=== PATIENT | male | born 1985 | race Caucasian/White ===

== ENCOUNTER → 2018-05-03 13:09 | Outpatient (CLI) | payer MEDICAID, SELFPAY ==
--- NOTE | 2018-05-03 13:30 | DI.REPORT_ITS ---
SYMPTOMS/DIAGNOSIS: SEVERE JOINT PAIN, STIFFNESS, PSORIASIS, LIKELY ARTHRITIS, SYNOVITIS DACTYLITIS PELVIS AND BOTH HIPS: The hip joint spaces are well maintained. No bony erosions or soft tissue calcifications are seen. The SI joints are not optimally profiled. IMPRESSION: Negative pelvis and bilateral hips. RIGHT HAND: The bones appear normally mineralized. No erosive or productive changes are seen. There are no soft tissue calcifications. IMPRESSION: Negative right hand. LEFT HAND: The bones are normally mineralized. The joint spaces are well maintained. No erosive or productive changes are seen. No soft tissue calcifications are present. IMPRESSION: Negative left hand. RIGHT FOOT: The bones are normally mineralized. The joint spaces are well maintained. No erosive or productive changes are seen. There is no soft tissue calcifications. IMPRESSION: Negative right foot. LEFT FOOT: The bones are normally mineralized. The joint spaces are well maintained. No erosive or productive changes or soft tissue calcifications are seen. IMPRESSION: Negative left foot.
[2018-05-03 13:43] LABS: HCT 43.4 % (40.0-50.0); HGB 14.5 g/dL (13.5-17.5); Mean Corp. HGB Concentration 33.4 g/dL (32.0-36.0); Mean Corpuscular Hemoglobin 30.7 pg (27.0-33.0); Mean Corpuscular Volume 91.8 fL (80-95); Mean Platelet Volume 10.3 fL (8.0-11.0); Platelet Count 321 x1000/uL (130-400); RBC 4.73 m/cumm (4.50-6.00); RBC Distribution Width 12.9 % (11.8-14.1); White Blood Cell Count 13.64 k/cumm (4.4-10.8)
[2018-05-03 14:09] LABS: ALT 31 U/L (12-78); AST 17 U/L (15-37); Albumin 3.8 g/dL (3.4-5.0); Alkaline Phosphatase 98 U/L (46-116); Anion Gap 6.2 mmol/L (3-11); BUN 14 mg/dL (7-18); Bilirubin, Total 0.5 mg/dL (0.2-1.0); C-Reactive Protein 0.41 mg/dL (0.0-0.3); CO2 27.8 mmol/L (21.0-32.0); CREATININE 0.83 mg/dL (0.70-1.30); Calcium 9.1 mg/dL (8.5-10.1); Chloride 103 mmol/L (98-107); Glucose 94 mg/dL (70-100); Potassium 4.2 mmol/L (3.5-5.1); Sodium 137 mmol/L (136-145); Total Protein 7.3 g/dL (6.4-8.2)
[2018-05-03 15:11] LABS: ESR 7 MM/HR (0-15)
== END ==
PROVIDERS: PCP Family Medicine; Visit Provider Internal Medicine Rheumatology
DX: L40.50 Arthropathic psoriasis, unspecified (principal); Z79.899 Other long term (current) drug therapy; M25.50 Pain in unspecified joint; M25.60 Stiffness of unspecified joint, not elsewhere classified
CPT/HCPCS: 36415; 73521; 80053; 85027; 85652; 73120; 73630; 86140

== ENCOUNTER 2018-07-05 14:47 | Outpatient (CLI) | payer MEDICAID, SELFPAY ==
[2018-07-06 09:39] LABS: Hepatitis B Surface Ag Negative (NEGAT)
[2018-07-06 09:52] LABS: Hep B Core Antibody Negative (NEGAT); Hepatitis C Ab w Rflx HCV PCR Negative (NEGAT)
== END 2018-07-05 15:07 ==
PROVIDERS: PCP Family Medicine; Visit Provider Family Medicine
DX: L40.50 Arthropathic psoriasis, unspecified (principal)
CPT/HCPCS: 36415; 86704; 86803; 87340

== ENCOUNTER 2018-07-08 03:11 | Emergency (ER) | payer MEDICAID, SELFPAY ==
[2018-07-08 03:27] VITALS: BP 126/90; PULSE 96; RESP 18; TEMP 37.6; O2SAT 97
--- NOTE | 2018-07-08 04:09 | ED.GENADUL_ITS ---
Discharge Plan Disposition Patient Disposition: HOME Condition: Good Discharge Details Chief Complaint: DentalOral Clinical Impression: Dental infection Primary Care Provider: Ching Muse ED Provider: Papito Vera [place] Meds and New Rx's Prescriptions: New clindamycin HCl 150 mg capsule 450 mg PO TID Qty: 60 RF: 0 pantoprazole [Protonix] 40 mg tablet,delayed release (DR/EC) 40 mg PO DAILY Qty: 10 RF: 0 ibuprofen 600 mg tablet 600 mg PO QID PRN (Reason: pain) Qty: 20 RF: 0 Continue prednisone 10 mg Tablet 10 mg PO DAILY RF: 0 Discharge Instructions Instructions: Dental Abscess (ED) Additional Instructions: Take antibiotic as directed. May use Tylenol as well as prescription Motrin for pain. Take the Protonix to help protect your stomach since you are also on prednisone. Follow-up with your dentist on Thursday. Return to ED if your worse Medical Decision Making Patient here with dental pain and likely dental infection. Has allergies to penicillin so he will be started on clindamycin. He has not taking anything for pain. He is on prednisone for his psoriatic arthritis. He is on 10 mg a day. I will put him on some Motrin but will also use Protonix to help protect his stomach. He will probably only need a day or 2 of this. Follow-up with dentistry on Thursday as planned. Return to ED if worse. HPI General Mode of arrival: ambulatory . Date/Time Provider Initiated Documentation: 07/08/18 04:00 . Limitations to Documentation: no limitations . Information obtained by: patient . HPI Narrative: Patient presents to ED with increasing left dental pain. Patient started to have pain a day or 2 ago. It has got much worse overnight tonight. He has had no fever. He has no difficulty breathing or swallowing. He states he does have an appointment to see his dentist on Thursday. He presents tonight because of increasing pain and some facial swelling. Related Data Home Medications Medication Instructions Recorded Confirmed clindamycin HCl 450 mg PO TID #60 cap 07/08/18 ibuprofen 600 mg PO QID PRN #20 tab 07/08/18 pantoprazole [Protonix] 40 mg PO DAILY #10 tab 07/08/18 prednisone 10 mg PO DAILY 07/08/18 07/08/18 Previous Rx's Medication Instructions Recorded clindamycin HCl 450 mg PO TID #60 cap 07/08/18 ibuprofen 600 mg PO QID PRN #20 tab 07/08/18 pantoprazole [Protonix] 40 mg PO DAILY #10 tab 07/08/18 Allergies Allergy/AdvReac Type Severity Reaction Status Date / Time amoxicillin Allergy Unknown Unverified 07/08/18 03:32 penicillin G Allergy Unknown Unverified 07/08/18 03:32 General Stated Complaint: DentalOral NICOLA: 4 Review of Systems Constitutional Denies chills, Denies fever(s) and Denies headache(s) ENT Reports dental pain, Denies dysphagia, Denies headache(s), Denies neck pain and Denies odynophagia Cardiovascular Denies dyspnea Respiratory Denies dyspnea Gastrointestinal Denies dysphagia and Denies odynophagia Musculoskeletal Denies neck pain Neurologic Denies headache(s) PFSH Family History Grandfather Colon cancer Medical History Adjustment disorder with depressed mood Attention deficit disorder Cocaine abuse, episodic Family history of colon cancer Family history of prostate cancer Irritable bowel syndrome Lipoma Marijuana use Pain, dental Psoriasis Rectal bleeding Social History Smoking/Tobacco Use Status: Former Tobacco Use Surgical History Colonoscopy - MAC (08/18/17) Exam Const General: cooperative, comfortable and no acute distress Orientation: alert and oriented x3 HENMT Head: normocephalic and atraumatic Face and sinus: no erythema, no fluctuance, no tenderness and other (Some mild swelling to the left anterior mandibular area) Teeth and gingiva: abnormal tooth or associated gingiva Neck Neck: trachea midline and supple Lymphatic: no lymphadenopathy noted Neuro General: alert, oriented x3, no focal motor deficits and CN's II-XI intact bilaterally Course Vital Signs Temperature 99.7 F H 07/08/18 03:27 Pulse 96 H 07/08/18 03:27 Respiratory Rate 18 07/08/18 03:27 Blood Pressure 126/90 07/08/18 03:27 Pulse Oximetry 97 07/08/18 03:27 Temperature 99.7 F H 07/08/18 03:27 Temperature Source Temporal Artery Scan 07/08/18 03:27 Pulse 96 H 10/25/18 03:27 Respiratory Rate 18 07/08/18 03:27 Respiratory Effort 07/08/18 03:27 Blood Pressure 126/90 07/08/18 03:27 Pulse Oximetry 97 07/08/18 03:27 Oxygen Delivery Method Room Air 07/08/18 03:27 Oxygen Flow Rate 0 07/08/18 03:27 Pain Level 8 07/08/18 03:31
[2018-07-08] MEDS: Clindamycin 150 MG CAP 450 MG PO (04:10)
[2018-07-08] MEDS: Pantoprazole 40 MG TABCR PO (04:10)
[2018-07-08] MEDS: Ibuprofen 600 MG TAB PO (04:10)
== END 2018-07-08 04:18 | disposition home or self-care (01) ==
LOC: ER 04:20
PROVIDERS: Emergency Provider Emergency Medicine; PCP Family Medicine
DX: R68.84 Jaw pain (principal); K04.7 Periapical abscess without sinus
CPT/HCPCS: 99283

== ENCOUNTER 2018-07-23 11:54 | Outpatient (CLI) | payer MEDICAID, SELFPAY ==
[2018-07-26 13:24] LABS: TB Interpretation Negative (NEGAT); TB1 Ag minus Nil 0.02 IU/mL; TB2 Ag minus Nil 0.02 IU/mL
== END 2018-07-23 12:14 ==
PROVIDERS: PCP Family Medicine; Visit Provider Family Medicine
DX: L40.50 Arthropathic psoriasis, unspecified (principal)
CPT/HCPCS: 36415; 86480

== ENCOUNTER 2019-01-27 15:29 | Outpatient (CLI) | payer MEDICAID, SELFPAY ==
[2019-01-27 15:59] LABS: HCT 42.9 % (40.0-50.0); HGB 14.7 g/dL (13.5-17.5); Mean Corp. HGB Concentration 34.3 g/dL (32.0-36.0); Mean Corpuscular Hemoglobin 30.1 pg (27.0-33.0); Mean Corpuscular Volume 87.9 fL (80-95); Mean Platelet Volume 10.6 fL (8.0-11.0); Platelet Count 289 x1000/uL (130-400); RBC 4.88 m/cumm (4.50-6.00); RBC Distribution Width 13.4 % (11.8-14.1); White Blood Cell Count 8.77 k/cumm (4.4-10.8)
[2019-01-27 16:44] LABS: ESR 1 MM/HR (0-15)
[2019-01-27 16:54] LABS: ALT 23 U/L (12-78); AST 15 U/L (15-37); Albumin 4.3 g/dL (3.4-5.0); Alkaline Phosphatase 82 U/L (46-116); Anion Gap 13.9 mmol/L (3-11); BUN 13 mg/dL (7-18); Bilirubin, Total 0.5 mg/dL (0.2-1.0); C-Reactive Protein 0.21 mg/dL (0.0-0.3); CO2 23.1 mmol/L (21.0-32.0); CREATININE 1.03 mg/dL (0.70-1.30); Calcium 8.9 mg/dL (8.5-10.1); Chloride 106 mmol/L (98-107); Glucose 88 mg/dL (70-100); Potassium 4.1 mmol/L (3.5-5.1); Sodium 143 mmol/L (136-145); Total Protein 6.9 g/dL (6.4-8.2)
== END 2019-01-27 15:49 ==
PROVIDERS: PCP Family Medicine; Visit Provider Internal Medicine Rheumatology
DX: L40.50 Arthropathic psoriasis, unspecified (principal); Z79.899 Other long term (current) drug therapy
CPT/HCPCS: 36415; 80053; 85027; 85652; 86140

== ENCOUNTER 2019-04-16 15:51 | Emergency (ER) | payer MEDICAID, SELFPAY ==
[2019-04-16 16:02] VITALS: BP 146/55; PULSE 52; RESP 18; TEMP 36.6
[2019-04-16] MEDS: LORazepam 2 MG/ML VIAL 0.5 MG IVP (16:33)
[2019-04-16] MEDS: Prochlorperazine 10 MG/2 ML VIAL IVP (16:33)
[2019-04-16] MEDS: Ketorolac 30 MG/ML VIAL IVP (16:33)
[2019-04-16] MEDS: diphenhydrAMINE 50 MG/ML VIAL IVP (16:33)
[2019-04-16] MEDS: Dexamethasone 10 MG/ML VIAL IVP (16:33)
[2019-04-16] MEDS: Normal Saline 1,000 ML 1000 ML IV (16:45)
[2019-04-16 16:52] LABS: Abs Immature Grans 0.02 k/cumm (0.0-0.09); Absolute Basophil Count 0.11 k/cumm (0.0-0.2); Absolute Eosinophil Count 0.35 k/cumm (0.0-0.7); Absolute Lymphocyte Count 2.77 k/cumm (1.2-3.4); Absolute Neutrophil Count 4.27 k/cumm (1.2-6.7); Basophils % 1.3; Eosinophils % 4.2; HCT 45.9 % (40.0-50.0); Immature Grans % 0.2; Lymphocytes % 32.9; Mean Corp. HGB Concentration 34.9 g/dL (32.0-36.0); Mean Corpuscular Hemoglobin 30.4 pg (27.0-33.0); Mean Corpuscular Volume 87.1 fL (80-95); Mean Platelet Volume 10.9 fL (8.0-11.0); Monocytes % 10.7; Neutrophils % 50.7; Platelet Count 318 x1000/uL (130-400); RBC 5.27 m/cumm (4.50-6.00); RBC Distribution Width 12.4 % (11.8-14.1); White Blood Cell Count 8.42 k/cumm (4.4-10.8)
--- NOTE | 2019-04-16 16:59 | NUR.NOTE ---
Nursing Note: Pt found at sliding glass door entrance to leave. Pt screaming, I want to go home, fuck this!. Pt ripped IV out of his arm and refused to let nurse put gauze bandage. Pt unable to state the year or month correctly. Pt body language tense, fists clench, continually screaming profanity.pt girlfriend at bedside to hallway with case management. Ivan ramos called, police called. Police not in site of patient, in break room on standby. After approx 20 minutes, pt able to be deescalated, and fell asleep. Police left. code rachel ended, girlfriend back to bedside. .
--- NOTE | 2019-04-16 17:09 | ED.GENADUL_ITS ---
Discharge Plan Disposition Patient Disposition: HOME Condition: Improving Discharge Details Chief Complaint: GenMedical Clinical Impression: Migraine with aura Primary Care Provider: Ching Muse ED Provider: Gregg Naranjo Home Meds and New Rx's Prescriptions: No Action prednisone 10 mg Tablet 10 mg PO DAILY RF: 0 clindamycin HCl 150 mg capsule 450 mg PO TID Qty: 60 RF: 0 pantoprazole [Protonix] 40 mg tablet,delayed release (DR/EC) 40 mg PO DAILY Qty: 10 RF: 0 ibuprofen 600 mg tablet 600 mg PO QID PRN (Reason: pain) Qty: 20 RF: 0 Discharge Instructions Instructions: Migraine Headache (ED) Additional Instructions: Return to the emergency department for any new or significant worsening symptoms, fever chills, or change in pain pattern. Otherwise follow-up with your primary care provider as needed for reassessment or if your headaches co ntinue. Referrals: Ching Muse MD [Primary Care Provider] - (As needed for reassessment) Discharge Data Discharge Date/Time-TO BE ENTERED AT DEPARTURE: 04/16/19 18:51 Medical Decision Making Patient presenting to the emergency department for not feeling well. Patient was found on the ground in front of registration in the emergency department. Patient states approximately an hour and a half or so before symptoms started he had been smoking some marijuana with his significant other. Then he started having some weird light flashes symptoms that then turned into some numbness that started on his right foot and progressed up his leg and arms, then the numbness started to subside when the headache started again. Patient does state history of migraine headaches but he has never had one similar to this. Patient denies any other injury or trauma, other illicit drug use, fever or chills. Physical exam shows a slightly agitated male that otherwise is neurologically intact, no focal numbness tingling or sensory deficit, no extremity weakness, cranial nerves intact with completely unremarkable exam. Highly suspect migraine with aura so plan to treat for migraine symptoms along with checking basic labs. Pending labs patient given little Ativan for agitation, ketorolac, Decadron, Benadryl, Compazine, and IV fluids. Approximately 20 minutes after patient received meds patient became severely agitated, pulled IV out of arm, and wanted to leave. Patient was not able to answer orientation questions so felipe manley was called. Did not need to restrain patient and was able to de-escalate situation. Patient then became calm and returned to room to rest. After patient woke up he stated significant improvement of symptoms, was calm, alert and oriented x4, minimal headache, no numbness tingling, no other neurological symptoms. Given improvement of symptoms and suspicion of migraine headache which patient states in the past and improvement of symptoms do feel the patient is able to be safely discharged. I did did inform patient he should follow-up with primary care provider for reassessment of his headache and any further symptoms. Patient's magnesium was slightly low on review of labs so he was given p.o. magnesium prior to discharge. HPI General Mode of arrival: wheelchair . Date/Time Provider Initiated Documentation: 04/16/19 15:56 . Limitations to Documentation: no limitations . Information obtained by: patient, family and RN notes reviewed . History of Present Illness 34 year old M presents to the emergency department with the chief complaint of headache, described as moderate and similar to prior episodes, with intensity rated at 9. Quality is described as aching, and is localized to the head. Patient started experiencing this hour(s) (2) and it has been constant. No relieving factors improve symptom(s), Other factors that worsen symptoms (Smoking marijuana) . Patient did receive the following treatments prior to arrival, none Related Data Home Medications Medication Instructions Recorded Confirmed clindamycin HCl 450 mg PO TID #60 cap 07/08/18 ibuprofen 600 mg PO QID PRN #20 tab 07/08/18 pantoprazole [Protonix] 40 mg PO DAILY #10 tab 07/08/18 prednisone 10 mg PO DAILY 07/08/18 07/08/18 Previous Rx's Medication Instructions Recorded clindamycin HCl 450 mg PO TID #60 cap 07/08/18 ibuprofen 600 mg PO QID PRN #20 tab 07/08/18 pantoprazole [Protonix] 40 mg PO DAILY #10 tab 07/08/18 Allergies Allergy/AdvReac Type Severity Reaction Status Date / Time amoxicillin Allergy Unknown Unverified 07/08/18 03:32 penicillin G Allergy Unknown Unverified 07/08/18 03:32 General Stated Complaint: GenMedical NICOLA: 3 Review of Systems Constitutional Denies body ache(s), Denies chills, Denies fever(s) and Reports headache(s) Eyes Denies change in vision ENT Denies dizziness and Reports headache(s) Cardiovascular Denies chest pain and Denies syncope Gastrointestinal Denies nausea and Denies vomiting Neurologic Reports as per HPI, Denies dizziness, Denies syncope, Reports headache(s) and Denies sensory deficit PFS Medical History Adjustment disorder with depressed mood Attention deficit disorder Cocaine abuse, episodic Family history of colon cancer Family history of prostate cancer Irritable bowel syndrome Lipoma Marijuana use Pain, dental Psoriasis Rectal bleeding Surgical History Colonoscopy - MAC (08/18/17) Family History Grandfather Colon cancer Social History Smoking/Tobacco Use Status: Former Tobacco Use Drug use: Daily Substance use type: marijuana Do you feel safe in your relationship?: Yes Exam Const General: cooperative, no acute distress, well groomed, anxious and combative Orientation: alert and awake HENMT Head: normal to inspection Ears: hearing grossly normal bilaterally and TM's normal bilaterally Mouth: oral mucosae normal and moist mucous membranes Throat: posterior oropharynx normal Eyes Visual Greenberg: normal visual greenberg by confrontation Alignment and Position: alignment normal Periorbital: periorbital findings normal Eyelids: eyelids normal Sclera: sclerae normal Cornea: corneas normal Pupils: PERRL EOM: EOM intact bilaterally Neck Neck: normal visual inspection, full ROM, no lymphadenopathy and no meningeal signs Resp Effort & Inspection: normal respiratory effort and able to speak in complete sentences Auscultation: clear to auscultation bilaterally Cardio Rate: regular rate Rhythm: regular rhythm Heart Sounds: S1 normal and S2 normal Neuro General: alert, awake, gait normal, tone normal, moves all extremities and CN's II-XI intact bilaterally Cognition: normal cognition Speech: speech normal Motor: muscle tone normal throughout, strength 5/5 throughout, no pronator drift, no movement abnormalities noted and no fasciculations Sensory Exam: no sensory deficits noted Coordination: Romberg test normal, Does not sway with eyes open and rapid alternating movement UE normal Course Vital Signs Temperature 36.6 C 04/16/19 16:02 Pulse 52 L 04/16/19 16:02 Respiratory Rate 18 04/16/19 16:02 Blood Pressure 146/55 H 04/16/19 16:02 Temperature 36.6 C 04/16/19 16:02 Pulse 52 L 04/16/19 16:02 Respiratory Rate 18 04/16/19 16:02 Blood Pressure 146/55 H 04/16/19 16:02 Blood Pressure Position Supine 04/16/19 16:02 Oxygen Delivery Method Room Air 04/16/19 16:02 Oxygen Flow Rate 0 04/16/19 16:02 Pain Level 0 04/16/19 16:02 Lab/Test Results Lab/Test Results: Laboratory Tests Range/Units 04/16/19 16:30 WBC (4.4-10.8) k/cumm 8.42 RBC (4.50-6.00) m/cumm 5.27 Hgb (13.5-17.5) g/dL 16.0 Hct (40.0-50.0) % 45.9 MCV (80-95) fL 87.1 MCH (27.0-33.0) pg 30.4 MCHC (32.0-36.0) g/dL 34.9 RDW (11.8-14.1) % 12.4 Plt Count (130-400) x1000/uL 318 MPV (8.0-11.0) fL 10.9 Immature Gran % 0.2 Neutrophils % 50.7 Lymphocytes % 32.9 Monocytes % 10.7 Eosinophils % 4.2 Basophils % 1.3 Absolute Neutrophils (1.2-6.7) k/cumm 4.27 Absolute Lymphocytes (1.2-3.4) k/cumm 2.77 Absolute Monocytes (0.11-0.7) k/cumm 0.90 H Absolute Eosinophils (0.0-0.7) k/cumm 0.35 Absolute Basophils (0.0-0.2) k/cumm 0.11
[2019-04-16 17:17] LABS: ALT 27 U/L (12-78); AST 16 U/L (15-37); Albumin 4.8 g/dL (3.4-5.0); Alkaline Phosphatase 78 U/L (46-116); Anion Gap 13.6 mmol/L (3-11); BUN 15 mg/dL (7-18); CO2 23.4 mmol/L (21.0-32.0); CREATININE 1.17 mg/dL (0.70-1.30); Calcium 9.4 mg/dL (8.5-10.1); Chloride 100 mmol/L (98-107); Glucose 104 mg/dL (70-100); Magnesium 1.6 mg/dL (1.8-2.4); Potassium 3.6 mmol/L (3.5-5.1); Sodium 137 mmol/L (136-145); Total Protein 8.1 g/dL (6.4-8.2)
--- NOTE | 2019-04-16 17:35 | NUR.NOTE ---
Nursing Note: pt resting in stretcher with girlfriend, sleeping, slow and even respirations noted.
[2019-04-16] MEDS: Magnesium Oxide 400 MG TAB PO (18:37)
--- NOTE | 2019-04-16 18:37 | NUR.NOTE ---
Nursing Note: pt resting in stretcher, no signs of distress. states that headache is better
[2019-04-16 18:51] VITALS: BP 115/72; PULSE 71; RESP 16; O2SAT 100
== END 2019-04-16 18:51 | disposition home or self-care (01) ==
PROVIDERS: Emergency Provider Nurse Practitioner Family; PCP Family Medicine
DX: G43.109 Migraine with aura, not intractable, without status migrainosus (principal)
CPT/HCPCS: 80053; 96361; 96374; 96375; 99284; 83735; 85025; J0780; J1100; J1200; J1885; J2060

== ENCOUNTER 2019-05-17 00:30 | Outpatient (CLI) | payer MEDICAID, SELFPAY ==
--- NOTE | 2019-05-17 11:21 | DI.MRI_ITS ---
SYMPTOM/DIAGNOSIS; HEADACHE R51, PARESTHESIA R20.9 MRI BRAIN: T2 sagittal, T1, T2, Flair, Diffusion and gradient echo axial sequences were performed. No intracranial hemorrhage, mass or infarct is seen. The ventricles are normal in size. There are no abnormal high signal lesions in the white matter. There are no areas of restricted diffusion. There is mucosal thickening of the maxillary and ethmoid sinuses. The orbits, pituitary and mastoid air cells are unremarkable. IMPRESSION: Mild chronic sinus disease. Normal appearing brain.
== END 2019-05-17 00:50 ==
PROVIDERS: PCP Family Medicine; Visit Provider Family Medicine
DX: R51 Headache (principal); R20.0 Anesthesia of skin; J32.9 Chronic sinusitis, unspecified
CPT/HCPCS: 70551

== ENCOUNTER 2024-04-11 17:05 | Outpatient (REF) | payer MEDICAID, SELFPAY ==
[2024-04-11 19:06] LABS: Abs Immature Grans 0.01 10^3/uL (0.0-0.06); Absolute Basophil Count 0.14 10^3/uL (0.0-0.2); Absolute Eosinophil Count 0.53 10^3/uL (0.0-0.7); Absolute Monocyte Count 0.66 10^3/uL (0.1-0.8); Absolute Neutrophil Count 3.36 10^3/uL (1.2-6.7); Eosinophils % 7.5 %; HCT 45.1 % (40.0-50.0); HGB 15.8 g/dL (13.5-17.5); Immature Grans % 0.1 %; Lymphocytes % 33.8 %; MCV 91 fL (80-95); MPV 10.6 fL (8.0-11.0); Monocytes % 9.3 %; Neutrophils % 47.3 %; Platelet Count 275 10^3/uL (130-400); RBC 4.94 10^6/uL (4.36-5.78); RDW 12.1 % (11.8-14.1)
[2024-04-11 19:20] LABS: ESR 1 mm/hr (0-15)
[2024-04-11 19:31] LABS: ALT 45 U/L (16-63); AST 32 U/L (15-37); Albumin 4.1 g/dL (3.4-5.0); Alkaline Phosphatase 78 U/L (46-116); Anion Gap 10.9 mmol/L (3-11); BUN 14 mg/dL (7-18); Bilirubin, Total 0.98 mg/dL (0.2-1.0); CO2 24.1 mmol/L (21.0-32.0); CREATININE 1.1 mg/dL (0.70-1.30); Calcium 9.4 mg/dL (8.5-10.1); Calculated LDL 156 mg/dL (<100); Chloride 105 mmol/L (98-107); Cholesterol 254 mg/dL (<200); Estimated GFR 87.03 (mL/min/1.73m2); Glucose 96 mg/dL (74-106); HDL Cholesterol 74 mg/dL (40-60); Potassium 4.5 mmol/L (3.5-5.1); Sodium 140 mmol/L (136-145); Total Protein 7.4 g/dL (6.4-8.2); Triglyceride 120 mg/dL (<150)
== END 2024-04-11 17:06 | disposition home or self-care (01) ==
LOC: NCHCN 17:05
PROVIDERS: PCP Family Medicine; Visit Provider Family Medicine
DX: L40.59 Other psoriatic arthropathy (principal); Z13.220 Encounter for screening for lipoid disorders; Z13.1 Encounter for screening for diabetes mellitus
CPT/HCPCS: 80053; 80061; 85652; 83036; 85025